=== PATIENT | female | born 1965 | race Caucasian/White ===

== ENCOUNTER 2023-08-05 08:47 | Outpatient (CLI) | payer OTHER | END 2023-08-05 08:48 | disposition home or self-care (01) | LOC: BICMAMMO 08:47 | PROVIDERS: ATTEND Nurse Practitioner Family | DX: Z12.31 Encounter for screening mammogram for malignant neoplasm of breast (principal) | CPT/HCPCS: 77063; 77067 ==

== ENCOUNTER 2024-03-14 07:34 | Outpatient (CLI) | payer OTHER | END 2024-03-14 07:35 | disposition home or self-care (01) | LOC: SCSMRI 07:34 | PROVIDERS: ATTEND Nurse Practitioner Family | DX: M43.17 Spondylolisthesis, lumbosacral region (principal); M48.07 Spinal stenosis, lumbosacral region; M51.37 Other intervertebral disc degeneration, lumbosacral region | CPT/HCPCS: 72148 ==

== ENCOUNTER 2024-08-10 11:08 | Outpatient (CLI) | payer OTHER | END 2024-08-10 11:09 | disposition home or self-care (01) | LOC: BICMAMMO 11:08 | PROVIDERS: ATTEND Nurse Practitioner Family | DX: Z12.31 Encounter for screening mammogram for malignant neoplasm of breast (principal) | CPT/HCPCS: 77063; 77067 ==